=== PATIENT | female | born 1945 | race Caucasian/White ===

== ENCOUNTER 2023-01-06 09:51 | Outpatient (RCR) | payer MEDICARE, SELFPAY ==
--- NOTE | 2023-01-06 11:04 | PT.OPEX ---
[facility] PT [facility] Outpatient Eval Start: 12/31/22 11:57 Freq: Status: Active Protocol: Document 01/06/23 07:10 MLS (Rec: 01/06/23 11:02 MLS [id number]) E-signed By Yessica Foote DPT Physical Therapy Outpatient Evaluation Insurance Information Insurance Name Medicare B,jt Medical Diagnosis M17.11 primary OA, right knee Z96.651 presence of right artificial knee joint Treating Diagnosis M25.561 Pain in right knee Z96.651 presence of right artificial knee joint (surgery 01/14/23) Referring MD Casa Torrez MD Subjective Subjective Patient is a 77 year old female who presents to physical therapy for her pre- op appointment prior to a TKA on 01/14/23. She is surprised that she has to do a pre-op appointment because her had both knees done without any pre-op appointment . 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 Significant past medical history includes restless leg syndrome, right ankle fusion, arthritis, depression, disc herniation C6-7, and previous left knee surgery from horse kick. 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 Preferred Name Linda Precautions Weight Bearing Status Full Weight Bearing Therapy Limitations/Systems Review Not Limited Objective Other/Pertinent Objective KNEE ROM Left knee: Grossly tested WNL Right knee:0-120 HIP ROM Grossly tested WNL LLE MMT: Knee flexion: R 4/5 L 4/5 Knee extension: R 4/5 L 4/5 JOINT MOBILITY/PALPATION Moderate swelling noted to right knee TX: Reviewed/demonstrated on frequency to perform HEP post operatively including: long sitting quad ankle pumps supine hamstring sets supine SAQ supine SLR flexion supine heel slide seated LAQ seated heel slides passive knee ext stretch Extensive discussion and education on what to expect post operatively. Time was spent discussing home modifications, Assistive devices, pain control, fall prevention, hospital stay time line, and assist needed for activities post surgically. Pt questions were answered and demonstrated understanding. Assessment Assessment/Impression Pt is a 77 year old female who presents for her pre-op appointment prior to a TKA on 01/14/23. Patient will be following up with outpatient PT with [facility] in [place]. Patient is a good candidate for skilled therapy to target deficits described above. Skilled PT intervention is necessary for use of therapeutic exercise manual therapy, neuromuscular re- education, gait training, and therapeutic activity. 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 Coordination/Communication With Referral Source Treatment Plan/Direct Interventions Gait Training,Ice/Cold/ Vasopneumatic,Joint Mobilization,Manual Therapy, Neuromuscular Re-ed, Therapeutic Activities, Therapeutic Exercises Frequency/Duration She is following up with outpatient PT in [place] Patient Will Be Discharged From Therapy Independently Progressing Evaluation Billing Untimed Code Treatment Minutes 30 Complexity Low Certification Information Physician Comment/Change : Physician NPI Number #
== END 2023-05-06 23:59 | disposition home or self-care (01) ==
PROVIDERS: PCP Orthopaedic Surgery; Visit Provider Orthopaedic Surgery
DX: M17.11 Unilateral primary osteoarthritis, right knee (principal); Z96.651 Presence of right artificial knee joint; M25.561 Pain in right knee; Z51.89 Encounter for other specified aftercare
CPT/HCPCS: 97161

== ENCOUNTER 2023-01-15 11:02 | Inpatient (IN) | payer MEDICARE, SELFPAY ==
[2023-01-14] VITALS (23 sets, daily range): BP systolic 105–172; BP diastolic 60–94; PULSE 47–99; RESP 11–16; TEMP 35.5–36.7; O2SAT 88–98; BMI 25.2
--- OUTSIDE RECORDS SUMMARY | 2023-01-14 07:19 | XMS_ITS | Continuity of Care Document ---
Author Name Unknown Organization [facility] Address [address] [place] [address] Phone Care Team Providers Care Dental Officer Name Role Phone Saeed Mcintosh MD Unavailable Unavailable Results Test Name Date and Time Measure Units Reference Range Abnormal Flag Status Commen ts Panel Description: CBC Final WBC 12:41:00 5.1 K/uL 3.5-10.8 Final Lymphocyte% 12:41:00 35.2 % 15.1-43.0 Final Mid% 12:41:00 6.3 % 1.0-18.0 Final Gran% 12:41:00 58.5 % 45.0-76.0 Final Lymphocyte # 12:41:00 1.8 K/uL 0.9-5.2 Final Mid # 12:41:00 0.3 K/uL 0.1-2.0 Final Gran # 12:41:00 3.0 K/uL 1.4-9.1 Final RBC 12:41:00 3.65 M/uL 3.80-5.20 L Final Hemoglobin 12:41:00 13.0 g/dL 11.5-16.0 Final Hematocrit 12:41:00 37.1 % 36.0-49.0 Final MCV 12:41:00 102 fL 81-100 H Final MCH 12:41:00 36 pg 27-35 H Final MCHC 12:41:00 35.0 g/dL 31.0-37.5 Final MPV 12:41:00 9.3 fL 7.0-10.4 Final Platelet Count 12:41:00 240 K/uL 130-400 Final Panel Description: NSAID Final AST 13:54:00 20 U/L 5-34 Final ALT 13:54:00 18 IU/L 5-35 Final BUN 13:54:00 26 mg/dL 10-37 Final Creatinine 13:54:00 0.9 mg/dL 0.5-1.3 Final B/C Ratio 13:54:00 27.5 Ratio Final Uric Acid 13:54:00 6.1 mg/dL 2.6-6.0 H Final Alk Phos 13:54:00 64 U/L 30-103 Final Advance Directives Directive Yes / No Effective Date File Name No Information Encounters Encounter Description Practice Location Reason(s) For Visit Diagnoses Date Provider Providers Copied on Encounter [facility], [address], [place], [place], [facility], tel:[phone] No Information 3 Arnaldo Klein [facility] [address], [place], [address], . tel:[phone] Family History Family Member Type Diagnosis Age At Onset No Information Payers Payer name Insurance type Covered green party ID Authoriza tion(s) No Information Social History Type Description Quantity Date Captured Comments Sex Female Smoking Status No Information Chief Complaint And Reason For Visit No Information Reason For Referral Reason For Referral No Information History Of Present Illness Encounter Date Complaint History Of Prese nt Illness No Information Functional Status Date Functional Assessmen t No Information Instructions Date Instruction Additional Infor mation No Information Assessments Type Assessment Date No Information Patient Care Teams Name Effective Dates (start - stop) Status Members No Information
--- OUTSIDE RECORDS SUMMARY | 2023-01-14 07:19 | XMS_ITS | Continuity of Care Document ---
Author Name Unknown Organization [facility] Address [address] [place] [address] Phone Care Team Providers Care Contact Centre Supervisor Name Role Phone Saeed Mcintosh MD Unavailable [...] [facility], [address], [place], [place], [facility], tel:[phone] No Information 3 Arnaldo Klein [facility] [address], [place], [address], . tel:[phone] Family History Family Member Type Diagnosis Age At Onset No Information Payers Payer name Insurance type Covered democrat ID Authoriza tion(s) No Information Social History [...]
[2023-01-14] MEDS: LACTATED RINGERS 1000 ML 1,000 ML 100 ML IV ×2 (07:25→10:15)
[2023-01-14] MEDS: ACETAMINOPHEN 500 MG TABLET 1000 MG PO ×3 (08:55→21:11)
[2023-01-14] MEDS: OXYCODONE (CR) 10 MG TAB.ER.12H PO (08:55)
[2023-01-14] MEDS: MIDAZOLAM HCL 1 MG/ML inj IVP (09:00)
[2023-01-14] MEDS: fentaNYL 100 MCG/2 ML inj IVP (09:00)
[2023-01-14] MEDS: SODIUM CHLORIDE 0.9 % (FLUSH) 10 ML SYRINGE IVF (09:06)
--- NOTE | 2023-01-14 09:06 | SUR.PREOP ---
TIME?OUT:?0854 PT/RN/MDA?VERIFICATION?OF?SURGICAL?SITE,?PROCEDURE,?AND?CONSENT OBTAINED?PRIOR?TO?INVASIVE?PROCEDURE.
--- NOTE | 2023-01-14 09:08 | P.NB_ITS ---
Nerve Block Nerve Block Time Seen by Provider: 08:58 Date Seen: 01/14/23 Type of block requested by surgeon for post-operative analgesia: adductor canal Side: right Time out performed: Yes Verification of patient name: Yes Verification of date of : Yes Site marking: site marked Name of person performing procedure: Chele Continuous monitoring Was continuous monitoring of O2 sat, B/P, monitoring analyst, recorded every 15 minutes?: Yes Procedure Checklist: sterile prep, needles and gloves Ultrasound guided. Images saved: Yes Medications given in 5ml increments after negative aspiration: Ropivicaine %: 0.5 mL: 20 Needle gauge: 20 Decadron (mg): 10 Precedex (mcg): 25 Patient tolerated procedure well: Yes Additional comments: Needle noted adjacent to nerve Block Charges Block Charge (with Pro Fee): Femoral Nerve Use of Ultrasound Machine for Block: Yes- US Guidance/pain block
--- NOTE | 2023-01-14 09:08 | W.PM.NB ---
Nerve Block Nerve Block Time Seen by Provider: 08:58 Date Seen: 01/14/23 Type of block requested by surgeon for post-operative analgesia: geniculars Side: right Time out performed: Yes Verification of patient name: Yes Verification of date of : Yes Site marking: site marked Name of person performing procedure: Chele Continuous monitoring Was continuous monitoring of O2 sat, B/P, screen printing loader unloader, recorded every 15 minutes?: Yes Procedure Checklist: sterile prep, needles and gloves Medications given in 5ml increments after negative aspiration: Ropivicaine %: 0.5 mL: 9 Needle gauge: 25 Patient tolerated procedure well: Yes Block Charges Block Charge (with Pro Fee): Genicular Nerve Block Use of Ultrasound Machine for Block: No
--- NOTE | 2023-01-14 09:09 | W.ANESCHARGE ---
Anesthesia Charges Start Date/Time Anesthesia Start Date: 01/14/23 Anesthesia Start Time: 09:25 Stop Date/Time Anesthesia Stop Date: 01/14/23 Anesthesia Stop Time: 11:44 Summary Extremes of Age - Over 70 or under 1: MDA
[2023-01-14] MEDS: CEFAZOLIN 2 GM INJ IVP (09:45)
--- NOTE | 2023-01-14 11:16 | CRLHL7_ITS ---
For Patients: As a result of the Cures Act, medical imaging exams and procedure reports are released immediately into your electronic medical record. You may view this report before your referring provider. If you have questions, please contact your health care provider. Indication: post op TKA Technique: Two views right knee Findings/Impression: Hardware from a right total knee arthroplasty is in satisfactory position. Bone alignment is normal. No sign of acute fracture. Postop changes are within normal limits. Dictated by Gamaliel Squires MD @ 01/14/2023 1:17:00 PM (Electronically Signed)
--- NOTE | 2023-01-14 11:18 | PM.ORPRC ---
Procedure Note Date of procedure: 01/14/23 Procedure: PREOPERATIVE DIAGNOSIS: Right knee osteoarthritis POSTOPERATIVE DIAGNOSIS: Right knee osteoarthritis NAME OF OPERATION: Right total knee arthroplasty SURGEON: Casa Torrez MD WIRE CHIEF: CRESCENCIO Curran ANESTHESIA: Spinal ESTIMATED BLOOD LOSS: 0 mL COMPLICATIONS: None SPECIMENS: None DRAINS: None PREOPERATIVE ANTIBIOTICS: Ancef 1 grams, antibiotic impregnated cement IMPLANTS: 1. J&J Attune # 5 narrow posterior stabilized femur 2. #4 fixed-bearing tibia 3. #5 posterior stabilized, 6 mm fixed-bearing polyethylene 4. 35 patella INDICATIONS: The patient is a 77-year-old with a longstanding history of severe, unrelenting right knee pain secondary to end-stage (grade IV) left knee osteoarthritis. Despite appropriate nonoperative management, including activity modification, anti-inflammatories, [id number]-[id number] pain medication, bracing, physical therapy, and injections they continue to have pain and disability. Operative intervention was offered. The risks, benefits and expected outcomes were discussed in detail. These included but were not limited to: Infection, bleeding, injury to blood vessel or nerve, venous thromboembolism. All questions were answered to their satisfaction. Use of an social science research assistant was necessary throughout the case for patient positioning and safety, soft tissue retraction, and closure. PROCEDURE: Spinal anesthesia was administered. The patient was placed supine on the operating table. The social science research assistant made sure the patient was positioned appropriately. The lower extremity was prepped and draped in the usual sterile fashion. The limb was exsanguinated with the Steve bandage. The pneumatic tourniquet was inflated to 300 mmHg. A standard anterior incision was made with the knee in flexion. Subcutaneous dissection was sharply taken through fascial layer #1. Full-thickness medial and lateral flaps were elevated. The social science research assistant retracted the soft tissues and protected them throughout the case. A standard medial parapatellar approach was made. The patella was everted. The infrapatellar fat pad was preserved. The menisci and cruciate ligaments were sharply d?brided. Marginal osteophytes were d?brided with the rongeur. The drill was used to penetrate the femoral canal. The canal was aspirated and irrigated with pulse lavage. The intramedullary femoral guide was placed for a 5-degree valgus cut, removing 10 mm off the distal femur. The saw was used to make the cut. Whitesides line and the trans epicondylar axis were marked. The femoral sizing guide was pinned onto the distal femur. Three degrees of external rotation nicely parallels the transepicondylar axis. Pins were placed for posterior referencing. The four-in-one cutting guide was pinned onto the distal femur. The anterior, posterior, and chamfer cuts were made. The social science research assistant protected the collateral ligaments. The box cutting guide was pinned. The box cuts were made. The boxed trial was placed and was an excellent fit. Drill holes for the lugs were made. Attention was then turned to the proximal tibia. The extramedullary tibial guide was placed for a neutral varus/valgus cut with 5 degrees of posterior slope, removing 0 mm based off the medial tibial surface. The social science research assistant protected the collateral ligaments and the neurovascular bundle. The saw was used to make the cut. Trial components were placed. The knee was nicely balanced in both flexion and extension. The trial components were removed. The tray was placed in appropriate rotation, parallel to our tibial cutting pins. It was pinned by the social science research assistant and the drill and the punch were used. The tray was removed. The punch was used again. We placed a bone plug in the femoral canal. Attention was then turned to the patella. [place] patellar thickness was 22 mm. The lobster claw resection guide was used with the 7.5 mm lyly. The saw was used to make the cut. Drill holes were made by the social science research assistant. The trial was placed and was an excellent fit. Cancellous surfaces were irrigated with pulse lavage and thoroughly dried by the social science research assistant. We cemented the tibial component, then the femoral component. We impacted the 6 mm polyethylene onto the tibial tray. The knee was brought into full extension. We then cemented the patellar component. Excessive cement was removed. The cement was allowed to harden. The knee was taken through a range of motion and was found to be nicely balanced in both flexion and extension. The patella tracks centrally. The social science research assistant did a three minute dilute Betadine solution soak. The social science research assistant irrigated the wound with 3 liters of normal saline via pulse lavage. The social science research assistant reapproximated the extensor mechanism with #1 Vicryl in an interrupted [id number] fashion. The social science research assistant then ran the extensor mechanism with a #1 PDO Stratafix. The social science research assistant closed the subcutaneous tissues with a 3-0 Stratafix and the skin with a running 3-0 Stratafix in a subcuticular fashion. Glue was used to seal the skin. The social science research assistant placed a dry dressing, GABY stocking, and Polar Care. Sponge and needle counts were correct x2. The patient tolerated the procedure well. There were no apparent complications. They were carefully transferred to the hospital bed and taken to the postanesthesia care unit in satisfactory condition. PLAN: The patient will be mobilized with physical therapy. Aspirin will be used for DVT prophylaxis. They will be discharged to home once medically appropriate.
--- NOTE | 2023-01-14 11:51 | P.ANES_ITS ---
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
--- NOTE | 2023-01-14 15:07 | REH.PT ---
Attempted to Eval pt this pm and complete TKA HEP however pt has no quad control and is not ready to mobilize with PT.
[2023-01-14] MEDS: CEFAZOLIN 1 GM in 0.9 % SODIUM CHLORIDE Mini-bag 100 ML IVPB (15:20)
--- NOTE | 2023-01-14 16:00 | PM.IMCN1 ---
Date of Consult Patient: Dale Patient Consult date: 01/14/23 Requesting Physician: Orthopedics Primary Care Provider: You Merida MD Consult Narrative Reason for consult: Postop care HLD, RLS, anxiety, depression, tobacco dependence Narrative: Skyla Diggs is a 77 year old undergoes elective right total knee arthroplasty today with Dr. Casa Torrez, [facility], [place], [place]. Surgery is successful without any apparent complications. Estimated blood loss 0 mL. Review of Systems Status of ROS: Reports: 10 or more systems reviewed and unremarkable except as noted in History and below Narrative: Reviewed preoperative consultation per her primary care physician, Dr. Alistair Hurtado, dated 01/01/2023. Patient deemed low risk for perioperative complications by her primary care physician. Patient denies chest heaviness, pressure, tightness, or pain. Denies syncope or near-syncope. Denies cough, dyspnea at rest, paroxysmal nocturnal dyspnea, orthopnea. Denies dependent edema. Denies nausea vomiting. Acknowledges having quit smoking about 6-7 weeks ago, and is still using the Chantix 1 mg twice daily for this. Acknowledges baseline anxiety and depression. Still dealing with the grief of her mother's passing this past 07/12/2022 from COVID-19, having acquired it from her brother new who did not take precautions to mitigate the transmission of COVID-19 to their mother. Enjoys being with her horse and horseback riding. Enjoys gardening. She grows her own marijuana. Tells me she might smoke a joint in the evening every now and then to help her relax. No other street or recreational drug use. Does drink alcoholic beverages regularly, uppers of 2-3 drinks per day. [facility] Medical History (Updated 01/14/23 @ 16:35 by Corbin Marcus MD) Marijuana use, episodic ?F12.90 - Cannabis use, unspecified, uncomplicated (ICD-10) Depression ?F32.A - Depression, unspecified (ICD-10) Anxiety disorder ?F41.9 - Anxiety disorder, unspecified (ICD-10) Alcohol use ?Z78.9 - Other specified health status (ICD-10) Chronic kidney disease, stage 3 ?N18.30 - Chronic kidney disease, stage 3 unspecified (ICD-10) Tobacco use disorder ?F17.200 - Nicotine dependence, unspecified, uncomplicated (ICD-10) Atopic dermatitis ?L20.9 - Atopic dermatitis, unspecified (ICD-10) Restless leg syndrome ?G25.81 - Restless legs syndrome (ICD-10) Arthritis ?M19.90 - Unspecified osteoarthritis, unspecified site (ICD-10) Kidney problem ?N28.9 - Disorder of kidney and ureter, unspecified (ICD-10) GERD (gastroesophageal reflux disease) ?K21.9 - Gastro-esophageal reflux disease without esophagitis (ICD-10) Elevated cholesterol ?E78.00 - Pure hypercholesterolemia, unspecified (ICD-10) Hypertension ?I10 - Essential (primary) hypertension (ICD-10) Surgical History (Updated 01/14/23 @ 16:27 by Corbin Marcus MD) S/P ANN-BSO ?Z90.710 - Acquired absence of both cervix and uterus (ICD-10) ?Z90.722 - Acquired absence of ovaries, bilateral (ICD-10) ?Z90.79 - Acquired absence of other genital organ(s) (ICD-10) History of laminectomy ?Z98.890 - Other specified postprocedural states (ICD-10) History of arthroscopy of right knee (01/21/17) ?Z98.890 - Other specified postprocedural states (ICD-10) History of ankle surgery (~06/2019) ?Z98.890 - Other specified postprocedural states (ICD-10) Family History Mother Breast cancer Heart disease High blood pressure Thyroid disease Father Pancreatic cancer Brother Diabetes CHF (congestive heart failure) Pancreatic cancer Social History What is your current living situation?: I presently have a place to live In the past 12 months, utilities in danger of being shut off: no In past 12 months, lack of transportation kept you from medical appts, meetings, work, or getting things needed for daily living: no In the past 12 mos, have been you worried that your food would run out before you had money to buy more?: never true In the past 12 mos, the food you bought just didn't last and you didn't have money to buy more?: never true Smoking Status: Former smoker What tobacco products do you use: cigarettes Years smoked: 30 Smoking quit date/years: <= 15 years ago Do you use any of these nicotine containing products: E-Cigarettes Second hand tobacco smoke exposure: No How often do you have a drink containing alcohol: 4 or more times a week Alcohol type: beer How many standard drinks containing alcohol do you have on a typical day: 3 or 4 How often do you have six or more drinks on one occasion: Never AUDIT-C Alcohol total score: 5 Non-prescribed substance use: marijuana (any form) Non-prescribed substance use details: smoking Caffeine: Yes How often does anyone, including family, friends and others, physically hurt you: never How often does anyone, including family, friends and others, insult or talk down to you: never How often does anyone, including family, friends and others, threaten you with harm: never How often does anyone, including family, friends and others, scream or curse at you: never service: No Meds Home Medications and Allergies Home Medications Medication Instructions Recorded Confirmed Type amitriptyline 25 mg tablet 25 mg PO HS 10/21/22 01/14/23 History baclofen 10 mg tablet 10 mg PO BID PRN 10/21/22 01/14/23 History gabapentin 300 mg capsule 300 mg PO TID 10/21/22 01/14/23 History lovastatin 40 mg tablet 40 mg PO HS 10/21/22 01/14/23 History sertraline 50 mg tablet 50 mg PO DAILY 10/21/22 01/14/23 History aspirin 81 mg tablet,delayed 81 mg PO DAILY 01/14/23 01/14/23 History release (Adult Aspirin Regimen) cholecalciferol (vitamin D3) 25 25 mcg PO DAILY 01/14/23 01/14/23 History mcg (1,000 unit) capsule varenicline 1 mg tablet (Chantix) 1 mg PO BID 01/14/23 01/14/23 History Allergies Allergy/AdvReac Type Severity Reaction Status Date / Time No Known Drug Allergies Allergy Verified 01/14/23 07:37 Exam Narrative: Exam Narrative: Examine her in her hospital room. Appears comfortable and in no acute distress. Vision and hearing are grossly normal. Alert and oriented to self, place, time, situation. Friendly, articulate, cooperative. Midline nasal septum. Dentition in fair repair. Oropharynx benign. No icterus or conjunctival injection. Pupils equally round and reactive to light and accommodation. Extraocular muscles are intact. Conjugate gaze. Neck is supple. Midline trachea. No head or neck lymphadenopathy. Lungs are clear to auscultation. Heart tones with regular rhythm. Abdomen with active bowel sounds, soft, nontender. No gross focal motor neurologic deficits. Aside from surgical incision which I do not assess, skin is grossly intact. No petechiae, rashes, or cyanosis. Const: Vital Signs, click to edit/add: Vital Signs - 24 hr 01/14/23 08:32 01/14/23 08:55 01/14/23 09:00 Temperature 98.0 F Pulse Rate 74 72 72 Respiratory Rate 16 16 16 Blood Pressure 155/82 H 143/76 H 140/70 H Blood Pressure [Ri ght Arm] Pulse Oximetry 95 97 97 Oxygen Delivery Me thod Nasal Cannula Nasal Cannula Oxygen Flow Rate 2 2 01/14/23 11:40 01/14/23 11:45 01/14/23 11:50 Temperature 96.5 F L Pulse Rate 63 60 59 L Respiratory Rate 12 12 14 Blood Pressure 118/64 119/68 105/66 Blood Pressure [Ri ght Arm] Pulse Oximetry 93 96 96 Oxygen Delivery Me thod Nasal Cannula Oxygen Flow Rate 2 01/14/23 11:55 01/14/23 12:00 01/14/23 12:05 Temperature Pulse Rate 52 L 56 L 52 L Respiratory Rate 12 11 L 12 Blood Pressure 111/63 114/63 114/63 Blood Pressure [Ri ght Arm] Pulse Oximetry 95 96 93 Oxygen Delivery Me thod Oxygen Flow Rate 01/14/23 12:10 01/14/23 12:15 01/14/23 12:30 Temperature 96.9 F L 96.0 F L Pulse Rate 53 L 47 L Respiratory Rate 12 16 Blood Pressure 118/62 121/64 Blood Pressure [Ri ght Arm] 132/68 Pulse Oximetry 94 Oxygen Delivery Me thod Room Air Oxygen Flow Rate Documenting provider has reviewed patient's vital signs: yes Assessment and Plan Assessment and plan (1) Osteoarthritis of right knee: Problem comment: End-stage, [id number] Status: Acute (2) Status post right knee replacement: Problem comment: 01/14/2023, Dr. Torrez, [place], [place]. Status: Acute (3) Tobacco use disorder: Problem comment: Quit late November 2022. Still uses Chantix 1 mg twice daily as of 01/14/2023. Status: Acute (4) Alcohol use: Problem comment: - 14-21 standard drinks per week - in-hospital monitor for possible alcohol withdrawal Status: Acute (5) Hypertension: Problem comment: Not requiring medication treatment as of 01/14/2023 Status: Acute (6) Restless leg syndrome: Problem comment: - on gabapentin and baclofen with fair relief Status: Acute Plan 1. Reviewed impression with patient 2. Continue with supportive medical interventions 3. Agree with perioperative antibiotic prophylaxis 4. Agree with postoperative venous thromboembolism prophylaxis 5. Plan otherwise as specified above 6. Completed the hospitalist portion of her discharge orders
[2023-01-14] MEDS: SENNOSIDES 1 TAB TABLET 2 TAB PO (21:10)
[2023-01-14] MEDS: ASPIRIN 81 MG TABLET EC PO (21:10)
[2023-01-14] MEDS: GABAPENTIN 300 MG CAPSULE PO (21:10)
[2023-01-14] MEDS: AMITRIPTYLINE 25 MG TABLET PO (21:10)
[2023-01-14] MEDS: LOVASTATIN 20 MG TABLET 40 MG PO (21:11)
[2023-01-14] MEDS: OXYCODONE 5 MG TABLET PO (22:34)
[2023-01-15] VITALS (8 sets, daily range): BP systolic 122–152; BP diastolic 57–77; PULSE 66–83; RESP 16; TEMP 36.2–36.7; O2SAT 93–97
[2023-01-15] MEDS: CEFAZOLIN 1 GM in 0.9 % SODIUM CHLORIDE Mini-bag 100 ML IVPB (00:22)
[2023-01-15] MEDS: HYDROmorphone 0.5 mg/0.5 ml inj IVP (01:35)
--- NOTE | 2023-01-15 05:08 | PC.NURSE ---
Shift note: Pt is doing ambulating with A1, walker and GB. Alert and oriented. Pain gradually increased from 0 to about 9 as anesthesia wears off. Pt had hard time falling asleep. Slept around 0230. Deluded was given for pain level of 9. Vitally stable.Cryo cuff, TEDs applied. Dressing appeared dry and clean
[2023-01-15] MEDS: ACETAMINOPHEN 500 MG TABLET 1000 MG PO ×4 (05:50→23:30)
[2023-01-15 07:09] LABS: Hematocrit 31.5 % (33.0-51.0); Hemoglobin* 10.6 gm/dL (12.0-16.0); Immature Granulocytes Abs Auto 0.01 K/uL (0.00-0.30); Immature Granulocytes Pct Auto 0.1 %; Lymphocytes Percent Auto 10.4 % (20-44); Mean Corpuscular HGB Conc 34 gm/dL (32-36); Mean Corpuscular Hemoglobin 34 pg (26-34); Mean Corpuscular Volume 102 fL (80-100); Monocytes Percent Auto 9.5 % (0.0-11.0); Platelet Count* 185 K/uL (140-440); RDW Coefficient of Variation % 12.9 % (11.5-15.5); Red Blood Count 3.08 m/uL (4.00-5.20); White Blood Count* 7.97 K/uL (4.50-11.00)
[2023-01-15 07:12] LABS: Slide Review Reflex No
[2023-01-15 07:25] LABS: Potassium* 3.8 mmol/L (3.6-5.1); Sodium* 131 mmol/L (135-149)
[2023-01-15 07:28] LABS: Blood Urea Nitrogen* 20 mg/dL (7-30); Creatinine* 0.7 mg/dL (0.5-1.5); Est. Creatinine Clearance* 40.18; Estimated Glomerular Filt Rate 88 ml/min
[2023-01-15 07:33] LABS: INR 1.03 (0.91-1.10); Prothrombin Time 14.1 Seconds
--- NOTE | 2023-01-15 08:15 | PM.ORPN ---
Subjective Subjective Time Seen by Provider: 07:10 Date Seen: 01/15/23 Principal diagnosis: Status post right knee replacement Interval history: Linda is doing fairly well. She had pain postoperatively and through the night and got minimal sleep. She states her quad is buckling when she stands and ambulates. She denies nausea or vomiting. Ortho Exam Narrative Exam Narrative: Alert and oriented x3. Patient is in no acute distress. Converses without labored breathing. Hearing is grossly intact. Ambulates with a walker. Examination of the right lower extremity shows small lateral area of ecchymosis nickel sized. Mild effusion. Mild soft tissue edema. Dressing is intact without erythema or drainage or sign of infection. Quad strength 4/5. CMS otherwise intact right lower extremity. Bilateral calves are soft and nontender. Unable to straight leg raise. Can do a partial heel slide on the bed. Const Vital Signs, click to edit/add: Vital Signs - 24 hr 01/14/23 08:32 01/14/23 08:55 01/14/23 09:00 Temperature 98.0 F Pulse Rate 74 72 72 Pulse Rate [Left Pulse Oximeter] Respiratory Rate 16 16 16 Blood Pressure 155/82 H 143/76 H 140/70 H Blood Pressure [Left Arm] Blood Pressure [Right Arm] Pulse Oximetry 95 97 97 Oxygen Delivery Method Nasal Cannula Nasal Cannula Oxygen Flow Rate 2 2 01/14/23 11:40 01/14/23 11:45 01/14/23 11:50 Temperature 96.5 F L Pulse Rate 63 60 59 L Pulse Rate [Left Pulse Oximeter] Respiratory Rate 12 12 14 Blood Pressure 118/64 119/68 105/66 Blood Pressure [Left Arm] Blood Pressure [Right Arm] Pulse Oximetry 93 96 96 Oxygen Delivery Method Nasal Cannula Oxygen Flow Rate 2 01/14/23 11:55 01/14/23 12:00 01/14/23 12:05 Temperature Pulse Rate 52 L 56 L 52 L Pulse Rate [Left Pulse Oximeter] Respiratory Rate 12 11 L 12 Blood Pressure 111/63 114/63 114/63 Blood Pressure [Left Arm] Blood Pressure [Right Arm] Pulse Oximetry 95 96 93 Oxygen Delivery Method Oxygen Flow Rate 01/14/23 12:10 01/14/23 12:15 01/14/23 12:30 Temperature 96.9 F L 96.0 F L Pulse Rate 53 L 47 L Pulse Rate [Left Pulse Oximeter] Respiratory Rate 12 16 Blood Pressure 118/62 121/64 Blood Pressure [Left Arm] Blood Pressure [Right Arm] 132/68 Pulse Oximetry 94 Oxygen Delivery Method Room Air Oxygen Flow Rate 01/14/23 12:45 01/14/23 13:00 01/14/23 13:15 Temperature 96.2 F L 96.4 F L 96.5 F L Pulse Rate Pulse Rate [Left Pulse Oximeter] 50 L 49 L 58 L Respiratory Rate 14 14 16 Blood Pressure Blood Pressure [Left Arm] 127/68 136/74 141/71 H Blood Pressure [Right Arm] Pulse Oximetry 95 96 95 Oxygen Delivery Method Nasal Cannula Nasal Cannula Room Air Oxygen Flow Rate 2 2 01/14/23 14:00 01/14/23 14:30 01/14/23 15:00 Temperature 96 F L Pulse Rate Pulse Rate [Left Pulse Oximeter] 60 57 L Respiratory Rate 16 16 16 Blood Pressure Blood Pressure [Left Arm] 118/60 134/73 Blood Pressure [Right Arm] Pulse Oximetry 96 96 Oxygen Delivery Method Room Air Room Air Oxygen Flow Rate 01/14/23 15:30 01/14/23 16:30 01/14/23 17:30 Temperature 97.7 F Pulse Rate Pulse Rate [Left Pulse Oximeter] 87 84 99 Respiratory Rate 16 16 16 Blood Pressure Blood Pressure [Left Arm] 172/94 H 167/93 H 137/69 Blood Pressure [Right Arm] Pulse Oximetry 96 92 98 Oxygen Delivery Method Room Air Room Air Room Air Oxygen Flow Rate 01/14/23 19:00 01/14/23 23:00 01/14/23 23:00 Temperature 97.7 F 97.9 F 97.9 F Pulse Rate 61 70 Pulse Rate [Left Pulse Oximeter] Respiratory Rate 16 16 16 Blood Pressure 152/89 H 141/80 H Blood Pressure [Left Arm] 141/80 H Blood Pressure [Right Arm] Pulse Oximetry 96 94 94 Oxygen Delivery Method Room Air Room Air Room Air Oxygen Flow Rate 01/15/23 03:00 Temperature 97.9 F Pulse Rate Pulse Rate [Left Pulse Oximeter] 66 Respiratory Rate 16 Blood Pressure Blood Pressure [Left Arm] 141/71 H Blood Pressure [Right Arm] Pulse Oximetry 94 Oxygen Delivery Method Room Air Oxygen Flow Rate Assessment and Plan Assessment and plan (1) Status post right knee replacement: Problem details: 01/14/2023, Dr. Torrez, [facility], [place], [place]. Status: Acute Assessment and Plan: Plan for discharge is today to home if they meet discharge criteria. I have spoken with hospitalist, Liliana, occupational therapy to inform them that her right quad is lacking strength in she is sensing buckling. She has not been out of bed for a couple hours. This will likely improve this morning. She cannot discharge until she is safe to do so. She has quit smoking cigarettes 6 weeks ago. DVT prophylaxis includes aspirin 81 mg twice daily x1 month, Prince stockings x1 month may remove for 1 hr per day, frequent ambulation Remove dressing in 1 week. Observe wound and phone Orthopedics with any questions or concerns Return to clinic in 1 week for a wound check Return to clinic in 6 weeks with surgeon Minimize narcotic use. Wean off and discontinue soon as possible. Activities as tolerated. No strenuous activity. Outpatient physical therapy as scheduled. Ice and elevate the operative extremity. No restriction on ice. I have given her my cell phone number to call if she has any questions or concerns over the weekend. We discussed that she will have 2-3 days where pain will become quite intense before gets better. She should expect excessive swelling and bruising over the next week.
[2023-01-15] MEDS: OXYCODONE 5 MG TABLET PO ×5 (08:56→20:52)
[2023-01-15] MEDS: GABAPENTIN 300 MG CAPSULE PO ×3 (08:56→20:51)
[2023-01-15] MEDS: SERTRALINE 50 MG TABLET PO (08:56)
[2023-01-15] MEDS: SENNOSIDES 1 TAB TABLET 2 TAB PO ×2 (08:56→20:51)
[2023-01-15] MEDS: ASPIRIN 81 MG TABLET EC PO ×2 (08:56→20:51)
[2023-01-15] MEDS: AMITRIPTYLINE 25 MG TABLET PO (20:51)
[2023-01-15] MEDS: LOVASTATIN 20 MG TABLET 40 MG PO (20:51)
[2023-01-15] MEDS: SODIUM CHLORIDE 0.9 % (FLUSH) 10 ML SYRINGE 5 ML IVF (23:41)
[2023-01-16] MEDS: OXYCODONE 5 MG TABLET PO ×3 (03:23→10:11)
[2023-01-16 03:29] VITALS: BP 177/82; PULSE 69; RESP 18; TEMP 36.4; O2SAT 97
[2023-01-16 04:04] VITALS: BP 152/75; PULSE 67
[2023-01-16] MEDS: MAG HYDROX/ALUMINUM HYD/SIMETH 30 ML ORAL.SUSP PO (04:06)
[2023-01-16] MEDS: ACETAMINOPHEN 500 MG TABLET 1000 MG PO (06:00)
--- NOTE | 2023-01-16 06:35 | PC.NURSE ---
Shift note [id number]: Pt has been alert & oriented x 4 throughout the shift and using call light appropriately. Dressing to anterior R knee surgical incision noted to be clean, dry and intact upon inspection. Pt has been continent of bladder. IV SL and patent when flushed PRN. Pt has been transferring well with assist of 1 using FWW and GB. Pt reported pain to R knee as / was given PRN Oxycodone for pain control along with use of cryocuff. Pt also remains on scheduled Tylenol for pain control. Pt has been afebrile. B/P noted to be 177/82 overnight though this was likely due to pain and having just been ambulating to BR as B/P was noted to be 152/75 after resting and given PRN Oxycodone. Patient denied chest pain, shortness of breath and numbness/tingling when asked. Pt also has hx of nicotine, marijuana and ETOH use and anxiety per chart and did not bring her Chantix in. CMS to R leg intact with SCDs and TEDs worn.?
[2023-01-16 07:02] LABS: Basophils Absolute Auto 0.04 K/uL (0.00-0.30); Basophils Percent Auto 0.6 % (0.0-3.0); Eosinophils Absolute Auto 0.08 K/uL (0.00-0.50); Eosinophils Percent Auto 1.2 % (0.0-7.0); Hematocrit 32.2 % (33.0-51.0); Hemoglobin* 10.6 gm/dL (12.0-16.0); Immature Granulocytes Abs Auto 0.01 K/uL (0.00-0.30); Immature Granulocytes Pct Auto 0.1 %; Lymphocytes Percent Auto 29.6 % (20-44); Mean Corpuscular HGB Conc 33 gm/dL (32-36); Mean Corpuscular Hemoglobin 34 pg (26-34); Mean Corpuscular Volume 104 fL (80-100); Monocytes Percent Auto 7.1 % (0.0-11.0); Neutrophils Absolute Auto 4.14 K/uL (1.7-7.0); Neutrophils Percent Auto 61.4 % (42.0-72.0); Platelet Count* 184 K/uL (140-440); RDW Coefficient of Variation % 13.4 % (11.5-15.5); Red Blood Count 3.09 m/uL (4.00-5.20); White Blood Count* 6.75 K/uL (4.50-11.00)
[2023-01-16 07:04] LABS: Slide Review Reflex No
[2023-01-16 07:23] LABS: INR 0.92 (0.91-1.10); Prothrombin Time 12.9 Seconds
[2023-01-16 07:24] LABS: Potassium* 4.1 mmol/L (3.6-5.1); Sodium* 134 mmol/L (135-149)
[2023-01-16 07:27] LABS: Blood Urea Nitrogen* 22 mg/dL (7-30); Creatinine* 0.8 mg/dL (0.5-1.5); Est. Creatinine Clearance* 40.18; Estimated Glomerular Filt Rate 75 ml/min
--- NOTE | 2023-01-16 07:50 | P.ORPN_ITS ---
Subjective Subjective Time Seen by Provider: 07:51 Date Seen: 01/16/23 Principal diagnosis: Status post right knee replacement Interval history: Linda states that she walked to the bathroom this morning and feels that her quads are working much better on the right lower extremity. Her block is wearing off for she has been getting more pain she states. Pain medications are helping. Ortho Exam Narrative Exam Narrative: Alert and oriented x3. Patient is in no acute distress. Converses without labored breathing. Hearing is grossly intact. Ambulates with a walker. Examination of Linda in her bed supine shows ecchymosis is present. Dressing is intact. No erythema or warmth or sign of infection. Mild effusion. Mild soft tissue edema. No pretibial edema. Calves are soft and nontender. Quad strength in supine position 5/5. She is able to easily straight leg raise. This is much improved from yesterday. CMS intact right lower extremity. Const Vital Signs, click to edit/add: Vital Signs - 24 hr 01/15/23 08:00 01/15/23 08:00 01/15/23 13:00 Temperature 97.2 F L 98.0 F Pulse Rate [Left Pulse Oximeter] 80 80 78 Respiratory Rate 16 16 16 Blood Pressure [Left Arm] 133/77 128/74 Pulse Oximetry 96 97 Oxygen Delivery Method Room Air Room Air 01/15/23 15:00 01/15/23 15:00 01/15/23 18:33 Temperature 98.0 F 98.0 F Pulse Rate [Left Pulse Oximeter] 78 83 Respiratory Rate 16 16 Blood Pressure [Left Arm] 152/62 H Pulse Oximetry 96 Oxygen Delivery Method Room Air 01/15/23 19:45 01/15/23 23:00 01/15/23 23:28 Temperature 98.0 F 97.5 F L Pulse Rate [Left Pulse Oximeter] 75 75 72 Respiratory Rate 16 16 16 Blood Pressure [Left Arm] 146/74 H 122/57 L Pulse Oximetry 96 93 Oxygen Delivery Method Room Air Room Air 01/16/23 03:29 01/16/23 04:04 Temperature 97.6 F Pulse Rate [Left Pulse Oximeter] 69 67 Respiratory Rate 18 Blood Pressure [Left Arm] 177/82 H 152/75 H Pulse Oximetry 97 Oxygen Delivery Method Room Air Assessment and Plan Assessment and plan (1) Status post right knee replacement: Problem details: 01/14/2023, Dr. Torrez, [facility], [place], [place]. Status: Acute Assessment and Plan: Plan for discharge is today to home if they meet discharge criteria. She will be able to discharge today if she passes physical therapy. She states that yesterday while doing the stairs she was about to fall but the physical therapist caught her. DVT prophylaxis includes aspirin 81 mg twice daily x1 month, Prince stockings x1 month may remove for 1 hr per day, frequent ambulation Remove dressing in 1 week. Observe wound and phone Orthopedics with any questions or concerns Return to clinic in 1 week for a wound check Return to clinic in 6 weeks with surgeon Minimize narcotic use. Wean off and discontinue soon as possible. Activities as tolerated. No strenuous activity. Outpatient physical therapy as scheduled. Ice and elevate the operative extremity. No restriction on ice.
[2023-01-16 08:30] VITALS: BP 136/77; PULSE 71; RESP 16; RESP 18; TEMP 36.3; O2SAT 96
[2023-01-16] MEDS: ASPIRIN 81 MG TABLET EC PO (10:11)
[2023-01-16] MEDS: GABAPENTIN 300 MG CAPSULE PO (10:11)
[2023-01-16] MEDS: SERTRALINE 50 MG TABLET PO (10:11)
[2023-01-16] MEDS: SENNOSIDES 1 TAB TABLET 2 TAB PO (10:11)
--- NOTE | 2023-01-16 13:47 | PC.NURSE ---
VSS AND AFEBRILE. PAIN MANAGED WITH SCHEDULED TYLENOL AND PRN TYLENOL. UP WITH A1, WALKER AND GAIT BELT AND TOLERATING ACTIVITY WELL. NO BUCKLING OF RIGHT LEG NOTED. DRESSING CDI. SALINE LOCK DC'D. REVIEWED DC INSTRUCTIONS WITH PATIENT AND HER . QUESTIONS ANSWERED AND REVIEWED CRYOCUFF USE. PATIENT DC'D HOME VIA .
--- OUTSIDE RECORDS SUMMARY | 2023-01-22 15:13 | XMS_ITS | Continuity of Care Document ---
Author Name Unknown Organization [facility] Address [address] [place] [address] Phone Care Team Providers Care Financial Reporting Advisor Name Role Phone Saeed Mcintosh MD Unavailable [...] [facility], [address], [place], [place], [facility], tel:[phone] No Information 3 Arnaldo Klein [facility] [address], [place], [address], . tel:[phone] Family History Family Member Type Diagnosis Age At Onset No Information Payers Payer name Insurance type Covered constitution party ID Authoriza tion(s) No Information Social [...]
== END 2023-01-16 11:48 | disposition home or self-care (01) | DRG 470 ==
LOC: OR 12:59 → MEDSURG 01-16 08:22
PROVIDERS: Admitting Provider Orthopaedic Surgery; PCP Family Medicine; Visit Provider Orthopaedic Surgery
PROC: (CPT 27447; principal; 2023-01-14 09:30)
DX: M17.11 Unilateral primary osteoarthritis, right knee (principal); G89.18 Other acute postprocedural pain; F41.9 Anxiety disorder, unspecified; F32.A Depression, unspecified; I12.9 Hypertensive chronic kidney disease with stage 1 through stage 4 chronic kidney disease, or unspecified chronic kidney disease; N18.30 Chronic kidney disease, stage 3 unspecified; G25.81 Restless legs syndrome; F10.90 Alcohol use, unspecified, uncomplicated; F12.90 Cannabis use, unspecified, uncomplicated; Z87.891 Personal history of nicotine dependence
CPT/HCPCS: 01402; 36415; 64447; 64454; 73560; 76942; 82565; 84132; 84295; 84520; 85025; 85610; 97110; 97116; 97162; 97165; 97530; 97535; 99100; A9270; C1776; J0690; J1100; J1170; J2250; J2371; J2405; J2704; J2795; J3010; J7120